=== PATIENT | female | born 1980 | race American Indian/Alaskan Native ===

== ENCOUNTER 2021-09-21 22:20 | Emergency (ER) | payer OTHER ==
[2021-09-22] MEDS ORDERED: SODIUM CHLORIDE 0.9% 1000 ML IV SOLN IV ONE (08:15)
[2021-09-22] MEDS ORDERED: ONDANSETRON 4 MG/2 ML INJ IV ONE (08:15)
[2021-09-22 08:43] LABS: Bilirubin,Urine NEG (Negative); Blood,Urine SM (Negative); Color,Urine Yellow (Yellow); Mucus,Urine FEW /HPF; Protein,Urine <15 mg/dL mg/dL (Negative)
--- NOTE | 2021-09-22 08:52 | Emergency Department Report ---
ED Female HPI - General Chief complaint: Nausea/Vomiting/Diarrhea Stated complaint: WEAKNESS/NAUSEA Source: patient Mode of arrival: Ambulatory Limitations: No Limitations - History of Present Illness Initial comments: 40-year-old female presents to the ED complaining urinary frequency, fatigue and nausea x2 days. Patient states that she noticed an increase in urination x1 d ay. Patient denies any abdominal pain at present time. She states that she became nausea this morning this a.m.. Denies any vomiting at present time. Patient denies any shortness of breath ,chest pain,or abd pain . Patient is alert and orient x3. No acute distress noted. No ill appearance noted. -: This morning - Related Data Previous Rx's Medication Instructions Recorded Last Taken Type Cyclobenzaprine [Flexeril] 10 mg PO TID PRN #15 tablet 12/02/15 Unknown Rx Ibuprofen [Motrin] 800 mg PO Q8HR PRN #15 tablet 12/02/15 Unknown Rx Hyoscyamine Subl [Levsin Sl 0.125 0.125 mg SL Q4HR PRN 5 Days #20 09/22/21 Unk nown Rx TAB] tablet Ondansetron (Nf) [Zofran TAB] 8 mg PO Q8HR PRN 5 Days #20 tablet 09/22/21 Unknown Rx cephALEXin [Keflex] 500 mg PO Q12HR 10 Days #20 cap 09/22/21 Unknown Rx Allergies Allergy/AdvReac Type Severity Reaction Status Date / Time No Known Allergies Allergy Unverified 12/02/15 08:59 ED Review of Systems ROS: Stated complaint: WEAKNESS/NAUSEA Other details as noted in HPI Constitutional: denies: chills, fever Eyes: denies: eye pain, eye discharge, vision change ENT: denies: ear pain, throat pain Respiratory: denies: cough, shortness of breath, wheezing Cardiovascular: denies: chest pain, palpitations Endocrine: no symptoms reported Gastrointestinal: denies: abdominal pain, nausea, diarrhea Genitourinary: urgency, dysuria, frequency. denies: discharge Musculoskeletal: denies: back pain, joint swelling, arthralgia Skin: denies: rash, lesions Neurological: denies: headache, weakness, paresthesias Psychiatric: denies: anxiety, depression Hematological/Lymphatic: denies: easy bleeding, easy bruising ED Past Medical Hx - Surgical History Additional Surgical History: - Social History Smoking Status: Never Smoker Substance Use Type: None - Medications Home Medications: Home Medications Medication Instructions Recorded Confirmed Last Taken Type Cyclobenzaprine [Flexeril] 10 mg PO TID PRN #15 tablet 12/02/15 Unknown Rx Ibuprofen [Motrin] 800 mg PO Q8HR PRN #15 tablet 12/02/15 Unknown Rx Hyoscyamine Subl [Levsin Sl 0.125 0.125 mg SL Q4HR PRN 5 Days #20 09/22/21 Unknown Rx TAB] tablet Ondansetron (Nf) [Zofran TAB] 8 mg PO Q8HR PRN 5 Days #20 tablet 09/22/21 Unknown Rx cephALEXin [Keflex] 500 mg PO Q12HR 10 Days #20 cap 09/22/21 Unknown Rx ED Physical Exam - General Limitations: No Limitations General appearance: alert, in no apparent distress - Head Head exam: Present: atraumatic, normocephalic - Eye Eye exam: Present: normal appearance - ENT ENT exam: Present: mucous membranes moist - Neck Neck exam: Present: normal inspection - Respiratory Respiratory exam: Present: normal lung sounds bilaterally. Absent: respiratory distress - Cardiovascular Cardiovascular Exam: Present: regular rate, normal rhythm. Absent: systolic murmur, diastolic murmur, rubs, gallop - GI/Abdominal GI/Abdominal exam: Present: soft, tenderness, normal bowel sounds - Extremities Exam Extremities exam: Present: normal inspection - Back Exam Back exam: Present: normal inspection - Neurological Exam Neurological exam: Present: alert, oriented X3 - Psychiatric Psychiatric exam: Present: normal affect, normal mood - Skin Skin exam: Present: warm, dry, intact, normal color. Absent: rash ED Course Vital Signs 09/21/21 09/22/21 22:25 11:11 Temperature 98.2 F 98.0 F Pulse Rate 97 H 79 Respiratory 16 20 Rate Blood Pressure 119/66 Blood Pressure 131/82 [Right] O2 Sat by Pulse 98 99 Oximetry ED Medical Decision Making - Lab Data Result diagrams: 09/22/21 08:57 09/22/21 08:57 - Medical Decision Making 40-year-old female presents to the ED complaining urinary frequency, fatigue and nausea x2 days. Patient states that she noticed an increase in urination x1 day. Patient denies any abdominal pain at present time. She states that she became nausea this morning this a.m.. Denies any vomiting at present time. Patient denies any shortness of breath ,chest pain,or abd pain . Patient is alert and orient x3. No acute distress noted. No ill appearance noted. Physical examination patient has tenderness noted to the right upper quadrant. She states pain is a 4 out of 10. Normal Saline 1 L given with Zofran 4mg IV . She states that he is feeling better. CT is unremarkable. Rechecked the patient is resting quietly quietly and comfortable and feeling better. I discussed the results of diagnostic study, my clinical impression and the plan for further treatment with the patient. Patient agrees with plan and discharge at this present time. All question addressed. I have given the patient instruction regarding a diagnosis ,expectation ,follow- up and return precaution. I explained to the patient that emergent condition may arise and to return to the ED for new worsen and any new persisting condition. I have explained the importance of following up with the primary care physician or referral physician listed below has instructed. The patient verbalized understanding of discharge instruction. Abnormal Lab Results 09/22/21 09/22/21 09/22/21 08:57 08:57 Unknown WBC 18.6 H RBC 5.10 H Hgb 13.2 Hct 40.5 MCV 79 MCH 26 L MCHC 33 RDW 15.7 H Plt Count 229 Sodium 134 L Potassium 4.4 Chloride 96.3 L Carbon Dioxide 28 Anion Gap 14 BUN 16 Creatinine 0.9 Estimated GFR > 60 BUN/Creatinine Ratio 18 Glucose 164 H Calcium 9.4 Total Bilirubin 0.70 AST 13 ALT 18 Alkaline Phosphatase 124 Total Protein 8.0 Albumin 3.9 Albumin/Globulin Ratio 1.0 Lipase 16 Urine Color Yellow Urine Turbidity Clear Urine pH 6.0 Ur Specific [place] 1.020 Urine Protein <15 mg/dl Urine Glucose (UA) Neg Urine Ketones Neg Urine Blood Sm Urine Nitrite Neg Urine Bilirubin Neg Urine Urobilinogen 2.0 Ur Leukocyte Esterase Neg Urine WBC (Auto) 2.0 Urine RBC (Auto) 3.0 U Epithel Cells (Auto) 7.0 Urine Mucus Few Urine HCG, Qual Negative Critical care attestation.: If time is entered above; I have spent that time in minutes in the direct care of this critically ill patient, excluding procedure time. ED Disposition Clinical Impression: Acute urinary tract infection Disposition: HOME / SELF CARE / HOMELESS Is pt being admited?: No Does the pt Need Aspirin: No Condition: Stable Instructions: Antibiotic Medicine, Adult, [id number], Urinary Tract Infection, Adult, [id number] Additional Instructions: Take medication as prescribed Return to the ED for any worsening symptoms Prescriptions: cephALEXin [Keflex] 500 mg PO Q12HR 10 Days #20 cap Hyoscyamine Subl [Levsin Sl 0.125 TAB] 0.125 mg SL Q4HR PRN 5 Days #20 tablet PRN Reason: Spasms Ondansetron (Nf) [Zofran TAB] 8 mg PO Q8HR PRN 5 Days #20 tablet PRN Reason: bladder spasm Referrals: PRIMARY CARE, [Primary Care Provider] - 3-5 Days [facility] [Provider Group] - 3-5 Days Forms: Work/School Release Form(ED) Time of Disposition: 10:55
[2021-09-22 08:54] LABS: HCG Qualitative,Urine Negative (Negative)
[2021-09-22 09:22] LABS: Hematocrit 40.5 % (30.3-42.9); Hemoglobin 13.2 gm/dl (10.1-14.3); Mean Corpuscular HGB Conc 33 % (30-34); Mean Corpuscular Volume 79 fl (79-97); Platelet Count 229 K/mm3 (140-440); Red Cell Distribution Width 15.7 % (13.2-15.2)
[2021-09-22 09:40] LABS: Alanine Aminotransferase 18 units/L (7-56); Albumin 3.9 g/dL (3.9-5); BUN/Creatinine Ratio 18; Blood Urea Nitrogen 16 mg/dL (7-17); Calcium 9.4 mg/dL (8.4-10.2); Hemolysis Index 6
--- NOTE | 2021-09-22 10:17 | Cat Scan Report ---
CT ABDOMEN AND PELVIS WITH CONTRAST HISTORY: right upper quad pain COMPARISON: None TECHNIQUE: Routine abdominal and pelvic CT exam performed following intravenous contrast administrat ion.. All CT scans at this location are performed using CT dose reduction for ALARA by means of autom ated exposure control. FINDINGS: CT ABDOMEN: Lung Bases: No significant abnormality. Liver: No significant abnormality. Biliary: No significant abnormality. Spleen: No significant abnormality. Unenlarged. Pancreas: No significant abnormality. Adrenals: No significant abnormality. Kidneys: No significant abnormality. Lymphatics: No lymphadenopathy. Vasculature: No significant abnormality. Bowel/Peritoneum: No significant abnormality. No free air. No free fluid. CT PELVIC: : Enlarged uterus containing heterogeneous masses, likely fibroids. Lymphatics: No lymphadenopathy. Osseous Structures: No aggressive appearing osseous lesions. Additional Findings: None IMPRESSION: 1. No acute findings. 2. Enlarged uterus with multiple masses, likely uterine fibroids. Signer Name: Eugene Mallory MD Signed: 09/22/2021 10:13 AM Workstation Name: [id number]
[2021-09-22 11:12] VITALS: BP 131/82
== END 2021-09-22 11:11 | disposition home or self-care (01) ==
LOC: ED 22:20
DX: N39.0 Urinary tract infection, site not specified (principal); Z79.899 Other long term (current) drug therapy
CPT/HCPCS: 36415; 74177; 80053; 81001; 81025; 82962; 83690; 85027; 96374; 99284; J2405; J7030; Q9967; 96375